=== PATIENT | female | born 1980 | race Caucasian/White ===

== ENCOUNTER → 2017-08-17 | Emergency (ER) | payer OTHER ==
[~2017-08-17] VITALS: Ht 172.7 cm; Wt 58.5 kg
== END | disposition home or self-care (01) ==
LOC: ER 11:12
DX: H57.11 Ocular pain, right eye (principal)

== ENCOUNTER 2022-06-13 13:29 | Emergency (ER) | payer OTHER ==
[~2022-06-13] VITALS: Ht 172.7 cm; Wt 74.8 kg
[2022-06-13] MEDS ORDERED: WELLBUTRIN XL300 MG PO (14:00)
== END 2022-06-13 16:29 | disposition home or self-care (01) ==
LOC: ER 13:29
DX: S99.921A Unspecified injury of right foot, initial encounter (principal); W22.8XXA Striking against or struck by other objects, initial encounter; Y93.9 Activity, unspecified; Y92.9 Unspecified place or not applicable